=== PATIENT | female | born 1945 | race Caucasian/White ===

== ENCOUNTER 2016-10-25 12:21 | Inpatient (IN) | payer MEDICARE, OTHER ==
--- NOTE | ~2016-10-25 | CN ---
Consultation Report [facility] [address] [place]. [address] NAME: CASE,TOMMIE GIL : 47 STATUS : ADM IN PAT#: [id number] AGE: 71 ADM/REG DATE : 10/25/16 MR#: [id number] REPORT SERV DATE: 10/26/16 DICTATED BY: DATE: REPORT STATUS : Draft TRANSCRIBED BY: MODL DATE: 10/26/16 NEUROLOGY CONSULTATION DATE OF CONSULTATION: 10/26/2016 REASON FOR CONSULT: Concern for stroke. HISTORY OF PRESENT ILLNESS: This is a 71-year-old female who presented to [facility] on 10/25/2016 secondary to several months duration of fatigue as well as right upper extremity weakness of one-week duration. The patient reports tire, now seems to be somewhat fluctuating for the past several months. The patient sometimes have difficulties gathering energy to move from one room to the next, otherwise the patient also noted to have episodic discomfort in the left shoulder as well as weakness in the right upper extremity ongoing for the past week and that seems to be stable. The patient denies any numbness and denies any bowel or bladder difficulties, and denies any dysarthria, dysphagia, language difficulties, or diplopia, and denies any significant gait abnormalities. The patient informed primary care physician regarding the fatigue and tiredness and followup 10/22/2016 and has had Crestor decreased from 10 mg to 5 mg p.o. at bedtime. The patient's primary care physician also wishes for the patient to follow up with her pharmacist intern sooner rather than later but unfortunately is unable to move up her appointment. The patient otherwise denies any other changes in her medication. Denies any recent illness, fever, chills, nausea, vomiting, chest pain, or shortness of breath. The patient at that time was noted by family members to have spontaneous tremor but does not seem to have anything significant impact on daily function. No tremor was otherwise observed during today's evaluation. PAST MEDICAL HISTORY: Significant for hypertension as well as diabetes. The patient denies any history of heart disease. Reports being followed by pharmacist intern for the past three to four years secondary to wish of primary care physician, usually with yearly checkup. Denies coronary artery disease or any heart disease. FAMILY HISTORY: The patient denies any significant family history, specifically denies family history of hypertension, diabetes, coronary artery disease, or stroke. SOCIAL HISTORY: Denies tobacco, alcohol, or recreational drug usage. ALLERGIES: THE PATIENT WAS NOTED TO HAVE NO KNOWN DRUG ALLERGIES. HOME MEDICATIONS: Consist of aspirin, calcium, Glucotrol, multivitamins, nifedipine, Prilosec, and Crestor. REVIEW OF SYSTEMS: Negative except for those mentioned in the HPI. PHYSICAL EXAMINATION: Consultation Report [address] [place]. [address] NAME: CASE,TOMMIE GIL : 47 STATUS : ADM IN MERGED WITH [facility]#: [id number] AGE: 71 ADM/REG DATE : 10/25/16 MR#: [id number] REPORT SERV DATE: 10/26/16 DICTATED BY: DATE: REPORT STATUS : Draft TRANSCRIBED BY: MODL DATE: 10/26/16 VITAL SIGNS: At the time of evaluation, the patient was noted to have vital signs with T- max of 98.3, heart rate of 68 to 91, respirations of 18 to 24, and blood pressure of 143 to 165 over 67 to 85. GENERAL: The patient is well developed, well nourished, in no acute distress. CARDIOVASCULAR: Regular rate and rhythm. No carotid bruits were otherwise auscultated. PULMONARY: Clear to auscultation bilaterally. NEUROLOGIC: Generally, the patient is alert and oriented to person, place, year, and month, and follows simple and two-step commands. No dysarthria. No aphasia was otherwise noted. Intact registration. Minimal difficulties with recall. Cranial nerves 2 through 12. Pupils equal, round, and reactive to light. Extraocular eye movement was noted to be intact. Intact peripheral vision. Symmetrical facial expression and sensation. Midline tongue. Normal palatal movement. Mild decreased hearing in bilateral ears. The patient was noted to have 5/5 right upper extremity strength with mild pronator drift, otherwise 5/5 left upper extremity strength and bilateral lower extremity strength, normal [id number] examination without ataxia. Mild intention tremor was seen at the time of evaluation. The patient demonstrated no asterixis. No posture tremor. No resting tremor was noted. Minimal rigidity in bilateral upper extremity was seen at the time of evaluation. The patient was noted to have mild deformed ankles and was noted to have mildly unsteady gait, which according to family member, no significant change of the patient's gait was noted during today's evaluation. Reports symmetrical sensation to bilateral upper and lower extremity at the time of evaluation. 3+ reflex in bilateral lower extremity, upgoing toe on bilateral plantar reflexes. The patient was noted to have 1+ reflex in bilateral upper extremities. LABORATORY STUDIES: Demonstrated white blood cell count of 7.9, hemoglobin of 12.1, hematocrit of 36.8, and platelet count of 203. Chemistry panel: Sodium 144, potassium 3.8, chloride of 108, bicarb 28, BUN of 27, creatinine 1.25, glucose of 132, calcium of 9.6, magnesium of 2.0. Serum cholesterol of 151, HDL 51, LDL 46, triglyceride 270. Serum ammonia of 18, serum TSH of 0.931, hemoglobin A1c of 6.7. MRI of the brain otherwise demonstrated no acute process. The patient demonstrated some subcortical white matter diseases. The patient's carotid Doppler study likewise also demonstrated no significant stenosis in bilateral internal carotid arteries. Echocardiogram report is currently pending. IMPRESSION: 1. Fatigue. 2. Right upper extremity weakness. MRI of the brain without contrast demonstrated no acute stroke. We will check laboratory studies due to lack of acute stroke as well as LDL less than 70. We will discontinue Lipitor and restart the patient on Crestor 5 mg p.o. at bedtime, awaiting echocardiogram report, question of radiculopathy for patient's right upper extremity weakness. RECOMMENDATION: 1. We will discontinue Lipitor. 2. Crestor 5 mg p.o. at bedtime. Consultation Report [address] [place]. [address] NAME: CASE,TOMMIE GIL : 47 STATUS : ADM IN MERGED WITH [facility]#: [id number] AGE: 71 ADM/REG DATE : 10/25/16 MR#: [id number] REPORT SERV DATE: 10/26/16 DICTATED BY: DATE: REPORT STATUS : Draft TRANSCRIBED BY: MODL DATE: 10/26/16 3. Echocardiogram report pending. 4. Thiamine, vitamin B12, folate, free T4, sedimentation rate, CRP with morning labs. 5. Continue aspirin. [facility]/MODL Manjinder Henderson MD / [id number] CC: Cj Fowler, DO
--- NOTE | ~2016-10-25 | HP ---
History And Physical [facility] [address] [place]. [address] NAME: CASE,TOMMIE GIL : 47 STATUS : DIS IN PAT#: [id number] AGE: 71 ADM/REG DATE : 10/25/16 MR#: [id number] REPORT SERV DATE: 10/28/16 DICTATED BY: MADHAVI TONEY DATE: 10/25/16 REPORT STATUS : Draft TRANSCRIBED BY: MODL DATE: 10/25/16 DATE OF ADMISSION: 10/25/2016 PRIMARY BIOMASS TECHNICIAN: Dr. Arcos. REASON FOR ADMISSION: Right humeral region heaviness. HISTORY OF PRESENT ILLNESS: This is a 71-year-old female with known history of hypertension, hyperlipidemia, diabetes, only on glipizide as an outpatient, known history as well of past surgical history of a benign kidney mass resection in the 1970s, her "tubes are tied", history of GERD, osteoarthritis. She takes low-dose baby aspirin as an outpatient. The patient comes in with [id number] episode of right humeral shoulder region heaviness. She apparently started shaking in her right arm at one time, then developed some abnormal twinges in her bilateral trapezius and at one time in her left shoulder, this is all resolved. The patient has had no slurred speech that she has endorsed. No trouble swallowing that she has endorsed. She denies any fevers, chills, nausea, vomiting, diarrhea, chest pain, chest pressure, or shortness of breath. Stated that she is supposed to go and see Dr. Damon Hua, her primary care doctor wanted her to but she did not know why. PAST MEDICAL HISTORY: See above. PAST SURGICAL HISTORY: See above. ALLERGIES: NO KNOWN DRUG ALLERGIES. REVIEW OF SYSTEMS: Done, see HPI. Otherwise, negative. HOME MEDICATIONS: See MAR. We will continue what is relevant. FAMILY HISTORY: Hypertension in at least one parent. SOCIAL HISTORY: Does not drink, do drugs, or do alcohol. She did have significant secondhand smoking exposure at one time. OBJECTIVE: VITAL SIGNS: They appeared to be blood pressure 145/67, 97.9 temp, 97 pulse as well as 18 respirations, and 96% on room air. GENERAL: No acute distress. HEENT: PERRLA. No scleral icterus. CARDIOVASCULAR: Regular rate and rhythm. No murmur. RESPIRATORY: Clear to auscultation bilaterally. No wheezes. No crackles. ABDOMEN: Nontender, nondistended. Positive bowel sounds. EXTREMITIES: No edema. No ecchymosis. NEUROLOGIC: She is A and O x4/4. GCS 15. She seems to have 5/5 power bilateral upper and History And Physical [facility] [address] [place]. [address] NAME: CASE,TOMMIE GIL : 47 STATUS : DIS IN PAT#: [id number] AGE: 71 ADM/REG DATE : 10/25/16 MR#: [id number] REPORT SERV DATE: 10/28/16 DICTATED BY: MADHAVI TONEY DATE: 10/25/16 REPORT STATUS : Draft TRANSCRIBED BY: DEJAN DATE: 10/25/16 lower extremities at least at this time. PSYCHIATRIC: Mildly anxious. LABORATORY DATA: White count 8000, 12.8 hemoglobin with 98,000 platelets, 4.1 potassium, 24 bicarb, 1.5 for creatinine unclear baseline, 33 BUN, 141 sodium, 230 sugar. Troponin was negative. TSH is negative. INR 1.1. CT of the brain did show 11 mm left cerebral stroke in the anterior deep white matter region, unclear which lobe of the brain it was. EKG is going to be pending. ASSESSMENT AND PLAN: 1. Right arm heaviness explained by acute to subacute left cerebral stroke. Risk factors: Diabetes, hypertension, hyperlipidemia, and age. She is on baby aspirin as an outpatient which she is compliant with. 2. INEZ versus CKD. 3. Hypertension. 4. Hyperlipidemia. 5. Non-insulin dependent diabetes. PLAN: We will go ahead and admit this patient. MRI, cannot use gadolinium given her INEZ versus CKD. CT abdomen and pelvis regarding possible nephrolithiasis rule out. She stated that her "guts were tingling at one time", unclear, as a result. We will also go ahead and place her on 325 aspirin, Lipitor 80 permissive hypertension goal systolic 151/70. We will also go ahead and have PT/OT, Speech Therapy see her. N.p.o. till Speech clears her. We would like to also look at her carotid ultrasound, echo with a bubble after an EKG. See rest of my orders. All questions were answered. It took well over 60 minutes to do. Reference [employer] and [employer]. WST/MODL Madhavi Toney DO / [id number] CC: Madhavi Toney DO
--- NOTE | ~2016-10-25 | DS ---
Discharge Summary [facility] [address] [place]. [address] NAME: CASE,TOMMIE GIL : 47 STATUS : DIS IN PAT#: [id number] AGE: 71 ADM/REG DATE : 10/25/16 MR#: [id number] REPORT SERV DATE: 10/28/16 DICTATED BY: MADHAVI TONEY DATE: 10/27/16 REPORT STATUS : Draft TRANSCRIBED BY: MODL DATE: 10/27/16 ADMISSION DATE: 10/25/2016 DISCHARGE DATE: 10/27/2016 HOSPITAL COURSE: This is a 71-year-old female with known history of hypertension; diabetes, on insulin dependent. She has been seen by Dr. Arcos as an outpatient. She does not have any known ischemic cardiomyopathy. The patient has additional history of hypertension, osteoarthritis, GERD, hyperlipidemia. The patient came in with right upper extremity weakness, ongoing for the past week, it was stable; increased fatigue and tiredness. She initially had a CT of the brain that had an 11 mm hypoattenuating lesion in the anterior deep white matter, left cerebral hemisphere suspicious for subacute stroke. As a result, she was admitted for stroke and had a MRI that did not show any acute cerebral infarction, only moderate cerebral atrophy, periventricular leukoencephalopathy. Her carotid ultrasound was totally normal. Her echo was normal, except for diastolic dysfunction, preserved EF. 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 As a result, with stable creatinine, I transitioned her to lisinopril for proteinuria risk and known diabetic hypertension. The patient is amenable for discharge. Should likely her right arm weakness has improved, she should get EMG as an outpatient. She may likely just have some potential nerve impingement due to arthritis in her cervical spine. Deferred to outpatient Neurology with likely EMG. Given her fatigue that she occasionally has especially when she exerts herself without any dyspnea or chest pain or chest pressure. Cardiac enzymes were negative. However, given her risk factors, age, and female status and diabetic within possible nonclassical symptoms, recommend Dr. Arcos to possibly pursue nuclear stress test as an outpatient. Does not have any overt angina here. FOLLOWUP: Followup with Neurology in four to eight weeks. Follow up with Nephrology for CKD 3, potential UPJ obstruction is not clinically too significant at this point. Follow with Dr. Arcos in four weeks. Consider possible nuclear stress test. Follow up with PCP in 2 weeks. DISCHARGE: Home. DISCHARGE MEDICATIONS: Aspirin 81 p.o. daily as well as Caltrate as well as Crestor 5 p.o. daily as well as Prilosec 40 p.o. q.48h.; multivitamin one tablet p.o. daily; lisinopril 2.5 p.o. q.h.s.; carvedilol 3.125 p.o. b.i.d., hold for systolic less than 100 per both; Glucotrol XL 2.5 p.o. b.i.d. She should no longer be taking her nifedipine. Discharge Summary [address] [address] NAME: CASETOMMIE : 47 STATUS : DIS IN PAT#: [id number] AGE: 71 ADM/REG DATE : 10/25/16 MR#: [id number] REPORT SERV DATE: 10/28/16 DICTATED BY: MADHAVI TONEY DATE: 10/27/16 REPORT STATUS : Draft TRANSCRIBED BY: DEJAN DATE: 10/27/16 CONSULTS: Neurology. PROCEDURES: None, except for echo. See above. All questions were answered. It took well over 30 minutes to do. JUVENAL/DEJAN Madhavi Toney DO / [id number] CC: Madhavi Toney DO
[2016-10-25 12:38] LABS: BASOPHILS 0.4 %; BASOPHILS ABSOLUTE 0.03 10/3/uL (0.0-0.16); EOSINOPHILS 1.9 %; EOSINOPHILS ABSOLUTE 0.15 10/3/uL (0.0-0.53); ER CBC TAT 0 Hrs 01 Mins; HEMATOCRIT 38.1 % (36.0-48.0); HEMOGLOBIN 12.8 g/dL (12.0-16.0); IMMATURE GRANULOCYTES 0.3 %; IMMATURE GRANULOCYTES ABSOLUTE 0.02 10/3/uL (0.0-0.11); LYMPHOCYTES 38.4 %; LYMPHOCYTES ABSOLUTE 3.06 10/3/uL (0.67-4.30); MANUAL DIFF NO %; MEAN CORPUS HGB CONC 33.6 g/dL (32.0-36.0); MEAN CORPUSCULAR HEMOGLOB 28.8 pg (26.0-34.0); MEAN CORPUSCULAR VOLUME 85.8 fL (80-100); MEAN PLATELET VOLUME 9.6 fL (9.2-13.0); MONOCYTES 7.8 %; MONOCYTES ABSOLUTE 0.62 10/3/uL (0.21-1.20); NEUTROPHILS 51.2 %; NEUTROPHILS ABSOLUTE 4.09 10/3/uL (2.02-8.40); PLATELET COUNT 198 10/3/uL (150-400); RBC DISTRIBUTION WIDTH 13.7 % (12.0-16.0); RED CELL COUNT 4.44 10/6/uL (4.0-5.6)
[2016-10-25 12:45] LABS: INTERNATIONAL NORMAL RATI 1.1 UNITS (-); PARTIAL THROMBO TIME 26.9 SEC (22.5-37.2); PROTIME (NOT ORD) 13.7 SEC (12.0-14.5)
[2016-10-25 12:59] LABS: BUN (BLOOD UREA NITROGEN) 33 MG/DL (6-23); CALCIUM, SERUM 9.3 MG/DL (8.5-10.4); CHEST PAIN PROFILE TAT 0 Hrs 26 Mins; CHLORIDE, SERUM 108 MMOL/L (96-112); CO2 (CARBON DIOXIDE) 26 MMOL/L (24-34); CREATININE 1.54 MG/DL (0.55-1.02); GFR AFRICAN AMERICAN 39 ML/MIN (>=60); GFR NON AFRICAN AMERICAN 34 ML/MIN (>=60); GLUCOSE, SERUM 230 MG/DL (60-99); POTASSIUM, SERUM 4.1 MMOL/L (3.5-5.3); SODIUM, SERUM 141 MMOL/L (135-148); TROPONIN I <0.02 NG/ML (<0.05)
[2016-10-25] MEDS ORDERED: GLUCXL2.5 PO (14:33)
[2016-10-25] MEDS ORDERED: MULTIVITAMI1 PO (14:33)
[2016-10-25] MEDS ORDERED: PRILOSEC40 MG PO (14:33)
[2016-10-25] MEDS ORDERED: CALTRA600D PO (14:33)
[2016-10-25] MEDS ORDERED: ASAB PO (14:34)
[2016-10-25] MEDS ORDERED: ADALAT CC30 MG PO (14:34)
[2016-10-25] MEDS ORDERED: CRESTOR5 MG PO (14:34)
[2016-10-25 18:50] LABS: BASOPHILS 0.4 %; BASOPHILS ABSOLUTE 0.03 10/3/uL (0.0-0.16); EOSINOPHILS 1.3 %; HEMATOCRIT 39.1 % (36.0-48.0); HEMOGLOBIN 12.8 g/dL (12.0-16.0); IMMATURE GRANULOCYTES 0.3 %; IMMATURE GRANULOCYTES ABSOLUTE 0.02 10/3/uL (0.0-0.11); LYMPHOCYTES 38.2 %; LYMPHOCYTES ABSOLUTE 3.03 10/3/uL (0.67-4.30); MEAN CORPUS HGB CONC 32.7 g/dL (32.0-36.0); MEAN CORPUSCULAR HEMOGLOB 28.1 pg (26.0-34.0); MEAN CORPUSCULAR VOLUME 85.9 fL (80-100); MONOCYTES 8.4 %; MONOCYTES ABSOLUTE 0.67 10/3/uL (0.21-1.20); NEUTROPHILS 51.4 %; NEUTROPHILS ABSOLUTE 4.09 10/3/uL (2.02-8.40); PLATELET COUNT 208 10/3/uL (150-400); RBC DISTRIBUTION WIDTH 13.7 % (12.0-16.0); RED CELL COUNT 4.55 10/6/uL (4.0-5.6); WHITE BLOOD CELLS 7.9 10/3/uL (4.5-10.5)
[2016-10-25 18:51] LABS: MANUAL DIFF NO %
[2016-10-25 19:14] LABS: A/G RATIO 1.1 (0.7-1.9); ALBUMIN 3.9 G/DL (3.5-5.0); ALKALINE PHOSPHATASE 96 U/L (45-117); BUN (BLOOD UREA NITROGEN) 33 MG/DL (6-23); CALCIUM, SERUM 9.5 MG/DL (8.5-10.4); CHLORIDE, SERUM 109 MMOL/L (96-112); CO2 (CARBON DIOXIDE) 27 MMOL/L (24-34); CREATININE 1.36 MG/DL (0.55-1.02); GFR AFRICAN AMERICAN 46 ML/MIN (>=60); GFR NON AFRICAN AMERICAN 39 ML/MIN (>=60); GLOBULIN 3.4 G/DL (2.5-4.1); GLUCOSE, SERUM 111 MG/DL (60-99); PHOSPHORUS, SERUM 3.5 MG/DL (2.5-4.5); POTASSIUM, SERUM 4.1 MMOL/L (3.5-5.3); SGOT(AST) 16 U/L (5-40); SGPT(ALT) 21 U/L (5-65); SODIUM, SERUM 143 MMOL/L (135-148); TOTAL BILIRUBIN 0.3 MG/DL (0-1.2); TOTAL PROTEIN 7.3 G/DL (6.0-8.5); ULTRASENSITIVE TSH 0.931 MCIU/ML (0.358-3.740)
[2016-10-25 19:15] LABS: B NATRIURETIC PEPTIDE (BNP) 32.6 PG/ML (< 100.0)
[2016-10-25 19:40] LABS: PROCALCITONIN <0.05 ng/mL (<0.5)
[2016-10-25 22:15] LABS: GLYCOHEMOGLOBIN (HbA1c) 6.7 % (4.7-6.1)
[2016-10-26 05:00] LABS: BASOPHILS 0.4 %; BASOPHILS ABSOLUTE 0.03 10/3/uL (0.0-0.16); EOSINOPHILS 2.1 %; EOSINOPHILS ABSOLUTE 0.17 10/3/uL (0.0-0.53); HEMATOCRIT 36.8 % (36.0-48.0); HEMOGLOBIN 12.1 g/dL (12.0-16.0); IMMATURE GRANULOCYTES 0.3 %; IMMATURE GRANULOCYTES ABSOLUTE 0.02 10/3/uL (0.0-0.11); LYMPHOCYTES ABSOLUTE 3.57 10/3/uL (0.67-4.30); MANUAL DIFF NO %; MEAN CORPUS HGB CONC 32.9 g/dL (32.0-36.0); MEAN CORPUSCULAR HEMOGLOB 28.3 pg (26.0-34.0); MEAN CORPUSCULAR VOLUME 86.2 fL (80-100); MEAN PLATELET VOLUME 9.8 fL (9.2-13.0); MONOCYTES 7.9 %; MONOCYTES ABSOLUTE 0.63 10/3/uL (0.21-1.20); NEUTROPHILS 44.3 %; NEUTROPHILS ABSOLUTE 3.52 10/3/uL (2.02-8.40); PLATELET COUNT 203 10/3/uL (150-400); RBC DISTRIBUTION WIDTH 13.8 % (12.0-16.0); RED CELL COUNT 4.27 10/6/uL (4.0-5.6); WHITE BLOOD CELLS 7.9 10/3/uL (4.5-10.5)
[2016-10-26 05:15] LABS: CALCIUM, SERUM 9.6 MG/DL (8.5-10.4); CHLORIDE, SERUM 108 MMOL/L (96-112); CHOLESTEROL 151 MG/DL (< 200); CO2 (CARBON DIOXIDE) 28 MMOL/L (24-34); CREATININE 1.25 MG/DL (0.55-1.02); GFR AFRICAN AMERICAN 50 ML/MIN (>=60); GFR NON AFRICAN AMERICAN 44 ML/MIN (>=60); GLUCOSE, SERUM 132 MG/DL (60-99); HDL CHOLESTEROL 51 MG/DL (> 49); LDL CHOLESTEROL 46 MG/DL (< 130); NON-HDL CHOLESTEROL 100 MG/DL (< 160); PHOSPHORUS, SERUM 3.2 MG/DL (2.5-4.5); POTASSIUM, SERUM 3.8 MMOL/L (3.5-5.3); SODIUM, SERUM 144 MMOL/L (135-148); TRIGLYCERIDE 270 MG/DL (< 150)
[2016-10-26 05:17] LABS: BUN (BLOOD UREA NITROGEN) 27 MG/DL (6-23)
[2016-10-26 12:08] LABS: ASCORBIC ACID (UR NOT ORDER) NEG (NEG); BILIRUBIN, URINE NEGATIVE (NEG); KETONE, URINE NEGATIVE (NEG); LEUKOCYTE ESTERASE(NOT OR NEG (NEG); WBC (NOT ORDERED) (RFLEX) 3 (0-5)
[2016-10-26 12:43] LABS: CREATININE, URINE 65.6 MG/DL
[2016-10-27 05:41] LABS: HEMATOCRIT 39.9 % (36.0-48.0); HEMOGLOBIN 13.2 g/dL (12.0-16.0); MEAN CORPUS HGB CONC 33.1 g/dL (32.0-36.0); MEAN CORPUSCULAR HEMOGLOB 28.7 pg (26.0-34.0); MEAN CORPUSCULAR VOLUME 86.7 fL (80-100); MEAN PLATELET VOLUME 10.3 fL (9.2-13.0); PLATELET COUNT 230 10/3/uL (150-400); RBC DISTRIBUTION WIDTH 13.5 % (12.0-16.0)
[2016-10-27 05:43] LABS: MANUAL DIFF YES %; WHITE BLOOD CELLS 12.3 10/3/uL (4.5-10.5)
[2016-10-27 06:32] LABS: BUN (BLOOD UREA NITROGEN) 28 MG/DL (6-23); C-REACTIVE PROTEIN 4.3 MG/L (<8.0); CALCIUM, SERUM 9.9 MG/DL (8.5-10.4); CHLORIDE, SERUM 107 MMOL/L (96-112); CO2 (CARBON DIOXIDE) 24 MMOL/L (24-34); CPK 105 U/L (0-200); FREE T4 1.16 NG/DL (0.76-1.46); GFR AFRICAN AMERICAN 44 ML/MIN (>=60); GFR NON AFRICAN AMERICAN 38 ML/MIN (>=60); GLUCOSE, SERUM 136 MG/DL (60-99); PHOSPHORUS, SERUM 3.5 MG/DL (2.5-4.5); POTASSIUM, SERUM 3.9 MMOL/L (3.5-5.3); SODIUM, SERUM 140 MMOL/L (135-148)
[2016-10-27 06:35] LABS: CK-MB 1.6 NG/ML; FOLATE 65.8 NG/ML (>5.2)
[2016-10-27 07:07] LABS: BAND NEUTROPHILS 2 %; EOSINOPHILS 1 %; EOSINOPHILS ABSOLUTE (CALC) 0.12 10/3/uL (0.0-0.53); LYMPHOCYTES 39 %; MONOCYTES 4 %; MONOCYTES ABSOLUTE (CALC) 0.49 10/3/uL (0.21-1.20); NEUTROPHILS ABSOLUTE (CALC) 6.89 10/3/uL (2.02-8.40); PLATELET ESTIMATE ADQ (ADEQUATE); SEGMENTED NEUTROPHIL (0) 54 %; TOTAL NUCLEATED CELLS 100
[2016-10-27 07:08] LABS: RBC MORPHOLOGY NORM (NORMAL)
[2016-10-27 07:23] LABS: SED RATE 23 MM/HR (0-20)
[2016-10-27] MEDS ORDERED: PRIN2.5 PO (10:57)
[2016-10-27] MEDS ORDERED: COREG3 PO (10:58)
== END 2016-10-27 12:04 | disposition home or self-care (01) | DRG 684 ==
LOC: ER 12:21 → 1SO 14:55
PROVIDERS: Emergency Medicine; Internal Medicine
DX: I12.9 Hypertensive chronic kidney disease with stage 1 through stage 4 chronic kidney disease, or unspecified chronic kidney disease (principal); E11.22 Type 2 diabetes mellitus with diabetic chronic kidney disease; N18.3 Chronic kidney disease, stage 3 (moderate); K21.9 Gastro-esophageal reflux disease without esophagitis; E78.5 Hyperlipidemia, unspecified; M62.81 Muscle weakness (generalized); Z79.82 Long term (current) use of aspirin; Z79.84 Long term (current) use of oral hypoglycemic drugs; Z79.899 Other long term (current) drug therapy
CPT/HCPCS: 70450; 70551; 71010; 74176; 80048; 80053; 80061; 81001; 82140; 82550; 82553; 82570; 82607; 82746; 82962; 83036; 83735; 83880; 83935; 84100; 84145; 84156; 84300; 84425; 84439; 84443; 84484; 85025; 85610; 85652; 85730; 86140; 93005; 93306; 93880; 99284; A9270-GY; J0360